=== PATIENT | male | born 2000 | race Caucasian/White ===

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

== ENCOUNTER 2018-06-19 07:52 | Emergency (ER) | payer OTHER, SELFPAY ==
[2018-06-19 08:30] LABS: #Basophils 0.2 thou/uL (0.0-0.2); #Eosinphils 0.1 thou/uL (0.0-0.7); #Lymphocytes 3.3 thou/uL (1.20-3.40); #Monocytes 1.1 thou/uL (0.11-0.59); #Neutrophils 7.3 thou/uL (1.40-6.50); %Basophils 1.3 % (0.0-1.0); %Eosinophils 0.8 % (0.0-10.0); %Lymphocytes 27.7 % (28.0-48.0); %Monocytes 9.3 % (0.0-4.0); %Neutrophils 60.9 % (31.0-61.0); Hemoglobin 14.8 g/dL (14.0-18.0); Mean Corpuscular HGB CONC 33.7 g/dL (32.0-36.0); Mean Corpuscular Hemoglobin 31.2 pg (25.0-35.0); Mean Corpuscular Volume 92.5 fL (78.0-98.0); Mean Platelet Volume 7.7 fL (7.4-10.4); Platelet Count 348 thou/uL (130-400); RBC Distribution Width 10.8 % (11.5-14.5); Red Blood Cell (RBC) Count 4.75 mill/uL (4.00-5.20)
[2018-06-19 08:43] LABS: ALT (SGPT) 18 U/L (8-55); AST (SGOT) 15 U/L (10-45); Albumin 4.7 g/dL (3.5-5.0); Alkaline Phosphatase 124 U/L (Less than 750); Anion Gap 16 mmol/L (10-20); BUN (Urea Nitrogen) 11 mg/dL (8.4-21.0); Bilirubin, Total 0.4 mg/dL (0.2-1.2); Calc. Creatinine Clearance 0 mL/min (70-130); Calcium 9.7 mg/dL (7.8-10.44); Carbon Dioxide 26 mmol/L (22-29); Chloride 102 mmol/L (98-107); Estimated GFR-MDRD Greater than 90; Globulin 3.9 g/dL (2.4-3.5); Glucose 250 mg/dL (70-105); Lipase 31 U/L (8-78); Potassium 4.1 mmol/L (3.5-5.1); Protein, Total 8.6 g/dL (6.0-8.3); Sodium 140 mmol/L (136-145)
[2018-06-19] MEDS ORDERED: Sodium Chloride 0.9% 1,000 ML ONE (08:49)
[2018-06-19] MEDS ORDERED: Ondansetron PF 4 MG/2 ML Vial ONE (08:49)
[2018-06-19] MEDS ORDERED: Ketorolac Tromethamine 30 MG/ML VIAL ONE (08:49)
[2018-06-19 09:12] LABS: Bilirubin Negative (Negative); Blood, Urine Negative (Negative); Clarity Clear (Clear); Glucose, Urine (Dipstick) 100 mg/dL (Negative); Leukocyte Negative (Negative); Nitrite Negative (Negative); Protein, Urine (Dipstick) Negative (Neg-Trace); Urobilinogen 0.2 mg/dL (0.2-1.0); pH, Urine 5.5 (5.0-9.0)
--- NOTE | 2018-06-19 09:23 | CT ---
CT ABDOMEN AND PELVIS NONCONTRAST: Date: 06/19/18 INDICATION: New onset right flank pain with nausea and vomiting. FINDINGS: There is no urolithiasis or obstructive uropathy. There is moderate distention of the gallbladder. Th e solid abdominal organs, bowel, lymph nodes, and vasculature are limited in assessment without prese nce of IV or enteric contrast. No free air or ascites. Imaged lung bases are clear. No acute osseous pathology. IMPRESSION: 1. No acute obstructive uropathy or evidence of urolithiasis. 2. Moderate distention of gallbladder. Recommend clinical correlation and, if necessary, gallbladder ultrasound may be obtained. 3. Evaluation otherwise limited on the basis of noncontrast technique. POS: [facility]
--- NOTE | 2018-06-19 10:07 | ULT ---
GALLBLADDER ULTRASOUND: Date: 06/19/18 HISTORY: Right upper quadrant pain. COMPARISON: None. TECHNIQUE: Utilizing a multihertz transducer, sonographic imaging of the right upper quadrant is performed in th e longitudinal and transverse plane. FINDINGS: Pancreas is obscured by bowel gas. The hepatic parenchyma has a normal echotexture. No hepatic masses or intrahepatic biliary dilatation . Contour of the hepatic margin is maintained. There is echogenic material with shadowing in the lumen of the gallbladder measuring 2.0 cm. [place] es are favored. Gallbladder wall is not thickened. No pericholecystic fluid. Negative Minor's sign. Suboptimal evaluation of the common bile duct. Right kidney has a normal cortical echotexture. No hydronephrosis. Right kidney measures 12.1 cm in m aximum dimension. IMPRESSION: 1. Suboptimal evaluation of the common bile duct. 2. Sonographic evidence of cholelithiasis without evidence of cholecystitis. POS: [facility]
== END 2018-06-19 10:20 | disposition home or self-care (01) ==
LOC: MADERS 07:52
DX: K80.20 Calculus of gallbladder without cholecystitis without obstruction (principal); F90.9 Attention-deficit hyperactivity disorder, unspecified type; Z79.899 Other long term (current) drug therapy
CPT/HCPCS: 36415; 74176; 76705; 80053; 81003; 83690; 85025; 96361; 96374; 96375; J1885; J2405; J7050

== ENCOUNTER 2018-07-19 07:38 | Emergency (ER) | payer OTHER, SELFPAY ==
--- NOTE | 2018-07-19 08:14 | RAD ---
PORTABLE AP CHEST XRAY: DATE: 07/19/2018. HISTORY: Chest pain. COMPARISON: None available. FINDINGS: The cardiac silhouette and pulmonary vasculature are within normal limits. The lungs are clear. Oss eous structures are intact. IMPRESSION: No acute cardiopulmonary process. POS: [facility]
[2018-07-19 08:24] LABS: Hemoglobin 13.7 g/dL (14.0-18.0); Mean Corpuscular HGB CONC 32.9 g/dL (32.0-36.0); Mean Corpuscular Hemoglobin 30.6 pg (25.0-35.0); Mean Platelet Volume 8.2 fL (7.4-10.4); Platelet Count 280 thou/uL (130-400); RBC Distribution Width 11.2 % (11.5-14.5); Red Blood Cell (RBC) Count 4.51 mill/uL (4.00-5.20); White Blood Cell (WBC) Count 8.2 thou/uL (4.8-10.8)
[2018-07-19] MEDS ORDERED: Ondansetron ODT 4 MG TAB ONE (08:25)
[2018-07-19] MEDS ORDERED: Ketorolac Tromethamine 30 MG/ML VIAL ONE (08:25)
[2018-07-19 08:33] LABS: ALT (SGPT) 16 U/L (8-55); AST (SGOT) 15 U/L (5-34); Albumin 4.1 g/dL (3.5-5.0); Alkaline Phosphatase 117 U/L (Less than 750); Anion Gap 13 mmol/L (10-20); BUN (Urea Nitrogen) 9 mg/dL (8.9-20.6); Bilirubin, Total 0.3 mg/dL (0.2-1.2); Calc. Creatinine Clearance 0 mL/min (70-130); Calcium 8.7 mg/dL (7.8-10.44); Carbon Dioxide 24 mmol/L (22-29); Chloride 108 mmol/L (98-107); Estimated GFR-MDRD Greater than 90; Globulin 3.3 g/dL (2.4-3.5); Glucose 218 mg/dL (70-105); Lipase 32 U/L (8-78); Potassium 3.9 mmol/L (3.5-5.1); Protein, Total 7.4 g/dL (6.0-8.3); Sodium 141 mmol/L (136-145)
[2018-07-19 08:35] LABS: Band 1 % (5-11); Lymphocytes 38 % (28-48); MDiff Complete? YES; Manual Diff?? YES; Monocytes 5 % (0-4); Neutrophil 56 % (31-61)
[2018-07-19 08:36] LABS: Anisocytosis SLIGHT = 6-15 cells (100X) (0-5/hpf); PLT Morphology Comment Appears Adequate
== END 2018-07-19 09:25 | disposition home or self-care (01) ==
LOC: MADERS 07:38
DX: K80.50 Calculus of bile duct without cholangitis or cholecystitis without obstruction (principal); F90.9 Attention-deficit hyperactivity disorder, unspecified type; K58.9 Irritable bowel syndrome, unspecified
CPT/HCPCS: 71045; 80053; 83605; 83690; 85025; 93005; 96374; J1885; Q0162

== ENCOUNTER 2019-05-11 19:44 | Emergency (ER) | payer OTHER ==
[2019-05-11] MEDS ORDERED: Ondansetron ODT 4 MG TAB ONE (20:03)
--- NOTE | 2019-05-11 20:25 | RAD ---
EXAM: Chest PA and lateral: HISTORY: Cough. Fever. Right lung crackles. COMPARISON: 07/19/2018 FINDINGS: Heart: Normal cardiac silhouette Aorta: Unremarkable Pulmonary vessels: Normal Costophrenic angles: Costophrenic angles are clear. Lungs: Increased opacity in the right lower lobe, best demonstrated the lateral projection. Correlate for atelectasis or infiltrate. Pneumothorax: No pneumothorax Osseous structures: No osseous abnormalities IMPRESSION: Right lower lobe opacity as above. Continued surveillance is recommended.
[2019-05-11] MEDS ORDERED: Promethazine DM 6.25-15mg/5ml 120 ML BOT ONE (20:28)
[2019-05-11] MEDS ORDERED: Prochlorperazine 10 MG/2 ML VIAL ONE (20:37)
[2019-05-11] MEDS ORDERED: Amoxicillin/Potassium Clav 875 MG TAB ONE (20:37)
[2019-05-11] MEDS ORDERED: Azithromycin 250 MG TAB ONE (20:37)
== END 2019-05-11 20:50 | disposition home or self-care (01) ==
LOC: MADERS 19:44
DX: J18.9 Pneumonia, unspecified organism (principal); J02.9 Acute pharyngitis, unspecified; R11.0 Nausea; F90.9 Attention-deficit hyperactivity disorder, unspecified type; Z79.899 Other long term (current) drug therapy
CPT/HCPCS: 71046; 87081; 87430; 87804; 96372; J0780; Q0162